=== PATIENT | male | born 1960 | race Caucasian/White ===

== ENCOUNTER 2017-01-23 01:36 | Emergency (ER) | payer OTHER ==
[~2017-01-23] VITALS: Ht 167.6 cm; Wt 97.0 kg
[~2017-01-23 01:36] MED LIST: BENA40TA41 PO; CYCL-319 PO; HYDR-3498 PO; HYDR12.58 PO; IBUP-1542 PO; OMEP20CA16 PO; TAMS-14 PO; TRAM50TA2 PO; ZOC10 PO; [UNRECOGNIZED DRUG - CODE] PO
[2017-01-23 02:01] VITALS: Ht 167.6 cm; Wt 97.0 kg
[2017-01-23 05:16] LABS: ADD SCAN DIFF NO
[2017-01-23 05:24] LABS: BASOPHILS % 0.4 % (0.0-2.0); EOSINOPHILS # 0.9 10^3/ul (0.0-0.5); EOSINOPHILS % 11.1 % (0.0-7.0); HEMATOCRIT 43.7 % (42.0-52.0); HEMOGLOBIN 15.2 g/dl (14.0-18.0); LYMPHOCYTES % 37.8 % (15.0-51.0); MEAN CORPUSCULAR HEMOGLOBIN 30.6 pg (29.0-33.0); MEAN CORPUSCULAR HGB CONC 34.8 g/dl (32.0-37.0); MEAN CORPUSCULAR VOLUME 88.1 fl (82.0-101.0); MEAN PLATELET VOLUME 9.4 fl (7.4-10.4); MONOCYTE # 0.6 10^3/ul (0.3-0.9); MONOCYTES % 8.1 % (0.0-11.0); NEUTROPHIL # 3.3 10^3/ul (1.6-7.5); PLATELET COUNT 284 10^3/UL (140-415); RED BLOOD COUNT 4.96 10^6/ul (4.70-6.10); RED CELL DISTRIBUTION WIDTH 12.3 % (11.5-14.5); WHITE BLOOD COUNT 7.9 10^3/ul (4.8-10.8)
[2017-01-23 05:31] LABS: INR 0.93; PROTIME 12.5 Sec (12.2-14.2)
[2017-01-23 05:32] LABS: PARTIAL THROMBOPLASTIN TIME 29.3 Sec (25.0-35.0)
--- NOTE | 2017-01-23 05:45 | RADRPT ---
PROCEDURE: CHEST - 1 VIEW CLINICAL INDICATION: 56-year-old male with chest pain. TECHNIQUE: A single frontal AP view of the chest was performed portably. The images were reviewed on a PACS workstation. COMPARISON: Chest x-ray May 16, 2015. FINDINGS: The cardiomediastinal silhouette has a normal appearance. There is no evidence for an infiltrate. There is no evidence for congestive heart failure. There is no evidence for pneumothorax. The osseou s structures are intact. IMPRESSION: No evidence for active cardiopulmonary disease. .Salvatore Mreritt MD, MD Date Time Electronically viewed and signed by .Salvatore Merritt MD, on 01/23/2017 05:45 .M/
[2017-01-23 05:46] LABS: ALBUMIN 4.6 g/dl (3.3-4.9); CHLORIDE 103 mmol/L (97-110)
[2017-01-23 05:47] LABS: POTASSIUM 4.1 mmol/L (3.5-5.1); SODIUM 145 mmol/L (135-144)
[2017-01-23 05:49] LABS: ALBUMIN/GLOBULIN RATIO 1.35; ALKALINE PHOSPHATASE 112 IU/L (42-121); ANION GAP 22 (8-16); ASPARTATE AMINO TRANSFERASE 46 IU/L (15-46); BILIRUBIN,INDIRECT 0.3 mg/dl (0-1.1); BILIRUBIN,TOTAL 0.3 mg/dl (0.2-1.3); BLOOD UREA NITROGEN 16 mg/dl (7-20); CARBON DIOXIDE 24 mmol/L (21-31); CREATININE 0.81 mg/dl (0.61-1.24); GLUCOSE 140 mg/dl (70-220)
[2017-01-23 05:50] LABS: ALANINE AMINOTRANSFERASE 28 IU/L (13-69); CALCIUM 9.7 mg/dl (8.4-10.2)
[2017-01-23 05:57] LABS: B-TYPE NATRIURETIC PEPTIDE 20 PG/ML (0-125)
[2017-01-23 06:01] LABS: TROPONIN-I < 0.012 ng/ml (0.00-0.12)
[2017-01-23] MEDS ORDERED: BELLADONNA/PHENOBARBITAL TAB PO STA (06:57)
[2017-01-23] MEDS ORDERED: FAMOTIDINE 20 MG TAB PO STA (06:57)
[2017-01-23] MEDS ORDERED: LIDOCAINE/MYLANTA 40 ML BTL PO STA (06:57)
[2017-01-23] MEDS ORDERED: FAMO40TA52 PO (07:01)
[2017-01-23] MEDS ORDERED: MAG355OR14 PO (07:01)
[2017-01-23] MEDS ORDERED: ACET325T33 PO (07:01)
[2017-01-23] MEDS ORDERED: OMEP40CA6 PO (07:01)
[2017-01-23 07:19] VITALS: BP 119/56; PULSE 64; RESP 18; TEMP 97.8
--- NOTE | 2017-01-23 07:58 | ERD ---
ER Documentation Chief Complaint Date/Time DATE: 01/23/17 TIME: 07:54 Chief Complaint CHEST PAIN SINCE YESTERDAY WITH SOB. SORE THROAT AND HEADACHE HPI 56-year-old man presents with burning epigastric pain which is sharp and radiating up to the throat. He states he has burning in his throat as well and increased belching over the last 2-3 days. He denies chest pain, denies fevers or chills, no calf or leg swelling, no vomiting or diarrhea, no headache or blurry vision. ROS All systems reviewed and are negative except as per history of present illness. Medications Home Meds Active Scripts Acetaminophen* (Tylenol*) 325 Mg Tablet, 2 TAB PO Q8 Y for PAIN AND OR ELEVATED TEMP, #30 TAB Prov:BANDAR HOWARD MD 01/23/17 Famotidine* (Famotidine*) 40 Mg Tablet, 40 MG PO HS, #30 TAB Prov:BANDAR HOWARD MD 01/23/17 Mag Hydrox/Al Hydrox/Simeth (Maalox Advanced Suspension) 355 Ml Oral.susp, 2 TSP PO TID for PAIN, #24 Prov:BANDAR HOWARD MD 01/23/17 Omeprazole* (Omeprazole*) 40 Mg Capsule.dr, 40 MG PO DAILY, #30 CAP Prov:BANDAR HOWARD MD 01/23/17 Cyclobenzaprine Hcl* (Cyclobenzaprine Hcl*) 10 Mg Tablet, 10 MG PO TID, #20 TAB Prov:PRIYANKA CUEVAS MD 04/17/16 Tramadol HCl (Tramadol HCl) 50 Mg Tablet, 50 MG PO Q4 Y for PAIN, #20 TAB Prov:PRIYANKA CUEVAS MD 04/17/16 Ibuprofen* (Motrin*) 600 Mg Tab, 600 MG PO Q6, #30 TAB Prov:PRIYANKA CUEVAS MD 04/17/16 Hydrocodone Bit-Acetaminophen* (Cologne*) 5-325 Mg Tab, 1 TAB PO Q4H Y for PAIN LEVEL 6-10 for 10 Days, TAB Prov:CANDACE CAPUTO MD 05/27/15 Primaquine* (Primaquine*) 15 Mg Tablet, 30 MG PO DAILY for 14 Days, TAB (26.3 MG PRIMAQUINE PHOSPHATE = 15 MG BASE) Prov:CANDACE CAPUTO MD 05/27/15 Reported Medications Omeprazole* (Omeprazole*) 20 Mg Capsule.dr, 20 MG PO DAILY, CAP 05/24/15 Benazepril Hcl* (Benazepril Hcl*) 40 Mg Tablet, 40 MG PO DAILY, TAB 05/24/15 Simvastatin (Simvastatin) 10 Mg Tablet, 10 MG PO HS, TAB 05/24/15 Hydrochlorothiazide* (Hydrochlorothiazide*) 12.5 Mg Tablet, 12.5 MG PO DAILY, TAB 05/24/15 Tamsulosin Hcl* (Flomax*) 0.4 Mg Cap.sr.24h, 0.4 MG PO QHS 05/04/12 Allergies Allergies: Coded Allergies: No Known Allergy (Unverified , 05/04/12) PMhx/Soc Hypertension, dyslipidemia History of Surgery: Yes (tongue sx, cholecystectomy) Anesthesia Reaction: No Hx Neurological Disorder: No Hx Respiratory Disorders: No Hx Cardiac Disorders: Yes (HTN, high cholesterol) Hx Psychiatric Problems: No Hx Miscellaneous Medical Probl: Yes (back pain) Hx Alcohol Use: No Hx Substance Use: No Hx Tobacco Use: Yes (quit 20 yrs ago) Smoking Status: Former smoker FmHx Family History: No diabetes Physical Exam Vitals Vital Signs Date Time Temp Pulse Resp B/P Pulse Ox O2 Delivery O2 Flow Rate FiO2 01/23/17 07:19 97.8 64 18 119/56 100 Room Air 01/23/17 05:34 Nasal Cannula 2 01/23/17 04:56 71 23 124/88 100 Room Air 01/23/17 02:01 97.6 72 18 141/91 98 Physical Exam GENERAL: Well-developed, well-nourished, well-hydrated, in no apparent distress , looks nontoxic in appearance HEENT: Moist mucous membranes, pink conjunctiva, no cervical spine tenderness or step-off deformities, no goiter, no jaundice or icterus, extraocular movements intact without pain. No submandibular induration, and no pharyngeal erythema NEURO: Alert and oriented 3, cranial nerves II through XII intact bilaterally, pupils equal round reactive to light, no focal deficits or facial asymmetry, sensation intact distally Strength 5/5 in upper and lower extremities bilaterally CARDIAC: Regular rate and rhythm, no murmurs rubs or gallops LUNGS: Clear bilaterally no wheezing crackles or stridor ABDOMEN: Soft nontender, no guarding, no rigidity, no rebound, no psoas sign no obturator sign. Normoactive bowel sounds SKIN: Warm and dry to touch, no abrasions, contusions, or hematomas, no lacerations, no ecchymosis, no target lesions, and without ulcers EXTREMITIES: No clubbing cyanosis or edema, calves are bilaterally symmetrical, no Homans sign, no popliteal cord sign. Distal pulses equal and bilateral PSYCH: Normal affect without agitation or irritability Result Diagram: 01/23/17 0505 01/23/17 0505 Results 24 hrs Laboratory Tests Test 01/23/17 05:05 Activated Partial Thromboplast Time 29.3Sec Alanine Aminotransferase (ALT/SGPT) 28IU/L Albumin 4.6g/dl Albumin/Globulin Ratio 1.35 Alkaline Phosphatase 112IU/L Anion Gap 22 Aspartate Amino Transf (AST/SGOT) 46IU/L B-Type Natriuretic Peptide 20PG/ML Basophils # 0.010^3/ul Basophils % 0.4% Blood Urea Nitrogen 16mg/dl Calcium Level 9.7mg/dl Carbon Dioxide Level 24mmol/L Chloride Level 103mmol/L Creatinine 0.81mg/dl Direct Bilirubin 0.00mg/dl Eosinophils # 0.910^3/ul Eosinophils % 11.1% Globulin 3.40g/dl Glucose Level 140mg/dl Hematocrit 43.7% Hemoglobin 15.2g/dl INR International Normalized Ratio 0.93 Indirect Bilirubin 0.3mg/dl Lymphocytes # 3.010^3/ul Lymphocytes % 37.8% Mean Corpuscular Hemoglobin 30.6pg Mean Corpuscular Hemoglobin Concent 34.8g/dl Mean Corpuscular Volume 88.1fl Mean Platelet Volume 9.4fl Monocytes # 0.610^3/ul Monocytes % 8.1% Neutrophils # 3.310^3/ul Neutrophils % 42.0% Nucleated Red Blood Cells # 0.010^3/ul Nucleated Red Blood Cells % 0.0/100WBC Platelet Count 34598^3/UL Potassium Level 4.1mmol/L Prothrombin Time 12.5Sec Prothrombin Time Ratio 1.0 Red Blood Count 4.9610^6/ul Red Cell Distribution Width 12.3% Sodium Level 145mmol/L Total Bilirubin 0.3mg/dl Total Protein 8.0g/dl Troponin I < 0.012ng/ml White Blood Count 7.910^3/ul Current Medications Medications (Trade) Dose Ordered Sig/Margarito Route PRN Reason Start Time Stop Time Status Last Admin Dose Admin Famotidine (Pepcid) 40 mg ONCE STAT PO 01/23/17 06:57 01/23/17 06:58 DC 01/23/17 07:14 Miscellaneous Medication (Gi Cocktail (2)) 40 ml ONCE STAT PO 01/23/17 06:57 01/23/17 06:58 DC 01/23/17 07:14 Belladonna/ Phenobarbital () 2 tab ONCE STAT PO 01/23/17 06:57 01/23/17 06:58 DC 01/23/17 07:16 Procedures/MDM I administered a GI cocktail 50 cc p.o., famotidine 40 mg p.o. with good response. EKG performed, read by me: 78 bpm, normal sinus rhythm, normal axis, no acute ST segment changes, narrow QRS complex, with good R-wave progression in precordial leads. CBC and electrolytes were normal, liver function tests were normal, troponin was negative Differential diagnoses considered, included but not limited to acute coronary syndrome, pulmonary embolism, aortic dissection, abdominal aortic aneurysm, sepsis, stroke, meningitis, encephalitis, pneumonia, appendicitis, cholecystitis , bowel obstruction, pyelonephritis, nephrolithiasis, cystitis, as well as metabolic, hematologic, and electrolyte abnormalities. As well as abscess, cellulitis, fractures, and dislocations. Patient feels much better at this time, and vital signs are normal, symptoms have improved. I did give strict instructions to return to the ED if symptoms continue or worsen, patient will otherwise follow-up with primary care physician. Patient understood instructions and agreed to plan. Departure Diagnosis: Primary Impression: Gastritis Gastritis type: unspecified gastritis Chronicity: acute Gastritis bleeding : without bleeding Qualified Code: K29.00 - Acute gastritis without hemorrhage, unspecified gastritis type Condition: Good BANDAR HOWARD MD Jan 23, 2017 07:58
== END 2017-01-23 07:22 | disposition home or self-care (01) ==
LOC: E/R 01:36
DX: K29.00 Acute gastritis without bleeding (principal); I10 Essential (primary) hypertension; R06.02 Shortness of breath; R40.2142 Coma scale, eyes open, spontaneous, at arrival to emergency department; R40.2252 Coma scale, best verbal response, oriented, at arrival to emergency department; R40.2362 Coma scale, best motor response, obeys commands, at arrival to emergency department; Z87.891 Personal history of nicotine dependence
CPT/HCPCS: 36415; 71010; 80053; 83880; 84484; 85025; 85610; 85730; 93005; Z7502; Z7610

== ENCOUNTER 2018-07-05 13:33 | Inpatient (IN) | END 2018-07-15 15:40 | disposition home or self-care (01) | DRG 871 ==

== ENCOUNTER 2018-12-22 22:44 | Inpatient (IN) | payer BC ==
[~2018-12-22] VITALS: Ht 167.6 cm; Wt 93.7 kg
[~2018-12-22 22:44] MED LIST changes: +ASPI-903 PO; +BENA20TA4 PO; -BENA40TA41 PO; +CARV6.25 PO; -CYCL-319 PO; +FAMO40TA5 PO; -HYDR-3498 PO; -HYDR12.58 PO; -IBUP-1542 PO; +MTF1000T PO; -OMEP20CA16 PO; +SIMV5TAB14 PO; -TAMS-14 PO; -TRAM50TA2 PO; -ZOC10 PO; -[UNRECOGNIZED DRUG - CODE] PO
--- NOTE | 2018-12-22 23:23 | ERD ---
ER Documentation Chief Complaint Chief Complaint fever w/ dysuria, flank pain, LOVETT. no n/v/d. last ibuprofen 2 hrs ago HPI 58-year-old man with a history of UTIs complains of dysuria and bilateral flank pain, headache, fever times 2 days. Patient denies urethral discharge, no chest pain or shortness of breath, no trauma, no hematuria, no complaints of vomiting or diarrhea. ROS All systems reviewed and are negative except as per history of present illness. Medications Home Meds Reported Medications Benazepril Hcl* (Benazepril Hcl*) 20 Mg Tablet, 20 MG PO DAILY, #30 TAB 07/05/18 Metformin* (Glucophage*) 1,000 Mg Tablet, 1000 MG PO BID, #60 TAB 07/05/18 Aspirin* (Aspirin* Chew) 81 Mg Tab.chew, 81 MG PO DAILY, TAB.CHEW 07/05/18 Simvastatin* (Simvastatin*) 5 Mg Tablet, 5 MG PO QHS, #30 TAB 07/05/18 Famotidine* (Famotidine*) 40 Mg Tablet, 40 MG PO DAILY, #30 TAB 07/05/18 Carvedilol* (Coreg*) 6.25 Mg Tablet, 6.25 MG PO BID, #60 TAB 07/05/18 Allergies Allergies: Coded Allergies: No Known Allergy (Unverified , 07/05/18) PMhx/Soc Hypertension, dyslipidemia, gastritis, diabetes mellitus, history of UTI History of Surgery: Yes Anesthesia Reaction: No Hx Neurological Disorder: No Hx Respiratory Disorders: No Hx Cardiac Disorders: Yes (mi) Hx Psychiatric Problems: No Hx Miscellaneous Medical Probl: No Hx Alcohol Use: No Hx Substance Use: No Hx Tobacco Use: No FmHx Family History: No diabetes Physical Exam Vitals Vital Signs Date Temp Pulse Resp B/P (MAP) Pulse Ox O2 O2 Flow FiO2 Time Delivery Rate 12/22/18 102.7 110 20 119/84 97 22:48 (96) Physical Exam GENERAL: Well-developed, well-nourished, well-hydrated, febrile HEENT: Moist mucous membranes, pink conjunctiva, no cervical spine tenderness or step-off deformities, no goiter, no jaundice or icterus, extraocular movements i ntact without pain. No submandibular induration, and no pharyngeal erythema NEURO: Alert and oriented 3, cranial nerves II through XII intact bilaterally, pupils equal round reactive to light, no focal deficits or facial asymmetry, sensation intact distally Strength 5/5 in upper and lower extremities bilaterally CARDIAC: Tachycardic and regular, no murmurs rubs or gallops LUNGS: Clear bilaterally no wheezing crackles or stridor ABDOMEN: Soft nontender, no guarding, no rigidity, no rebound, no psoas sign no obturator sign. Normoactive bowel sounds SKIN: Warm and dry to touch, no abrasions, contusions, or hematomas, no lacerations, no ecchymosis, no target lesions, and without ulcers EXTREMITIES: No clubbing cyanosis or edema, calves are bilaterally symmetrical, no Homans sign, no popliteal cord sign. Distal pulses equal and bilateral PSYCH: Normal affect without agitation or irritability Result Diagram: 12/23/18 0434 12/22/18 2333 Results 24 hrs Laboratory Tests Test 12/22/18 23:29 12/22/18 23:33 POC Venous Lactate 1.7 mmol/L White Blood Count 14.8 10^3/ul Red Blood Count 4.57 10^6/ul Hemoglobin 14.0 g/dl Hematocrit 40.7 % Mean Corpuscular Volume 89.1 fl Mean Corpuscular Hemoglobin 30.6 pg Mean Corpuscular Hemoglobin Concent 34.4 g/dl Red Cell Distribution Width 11.9 % Platelet Count 209 10^3/UL Mean Platelet Volume 9.6 fl Immature Granulocytes % 0.300 % Neutrophils % 82.1 % Lymphocytes % 8.2 % Monocytes % 5.9 % Eosinophils % 3.2 % Basophils % 0.3 % Nucleated Red Blood Cells % 0.0 /100WBC Immature Granulocytes # 0.050 10^3/ul Neutrophils # 12.1 10^3/ul Lymphocytes # 1.2 10^3/ul Monocytes # 0.9 10^3/ul Eosinophils # 0.5 10^3/ul Basophils # 0.0 10^3/ul Nucleated Red Blood Cells # 0.0 10^3/ul Prothrombin Time 14.3 Sec Prothrombin Time Ratio 1.1 INR International Normalized Ratio 1.10 Activated Partial Thromboplast Time 34.2 Sec Urine Color STACY Urine Clarity TURBID Urine pH 6.0 Urine Specific [place] 1.031 Urine Ketones TRACE mg/dL Urine Nitrite NEGATIVE mg/dL Urine Bilirubin NEGATIVE mg/dL Urine Urobilinogen 2+ mg/dL Urine Leukocyte Esterase 2+ Ayanna/ul Urine Microscopic RBC > 182 /HPF Urine Microscopic WBC > 182 /HPF Urine Bacteria MODERATE /HPF Urine Mucus MANY /HPF Urine Hemoglobin 2+ mg/dL Urine Glucose 2+ mg/dL Urine Total Protein 2+ mg/dl Sodium Level 138 mmol/L Potassium Level 3.8 mmol/L Chloride Level 104 mmol/L Carbon Dioxide Level 24 mmol/L Anion Gap 10 Blood Urea Nitrogen 12 mg/dl Creatinine 1.10 mg/dl Est Glomerular Filtrat Rate mL/min > 60 mL/min Glucose Level 253 mg/dl Calcium Level 9.4 mg/dl Total Bilirubin 1.5 mg/dl Direct Bilirubin 0.00 mg/dl Indirect Bilirubin 1.5 mg/dl Aspartate Amino Transf (AST/SGOT) 48 IU/L Alanine Aminotransferase (ALT/SGPT) 42 IU/L Alkaline Phosphatase 107 IU/L Troponin I < 0.012 ng/ml C-Reactive Protein 19.1 mg/dl Total Protein 8.0 g/dl Albumin 4.5 g/dl Globulin 3.50 g/dl Albumin/Globulin Ratio 1.28 Lipase 73 U/L Current Medications Medications Dose Sig/Margarito Start Time Status Last (Trade) Ordered Route PRN Stop Time Admin Dose Reason Admin Sodium 3,000 ml BOLUS OVER 2 12/22/18 DC 12/22/18 Chloride HOURS STAT 23:25 12/22/18 23:41 (NS) IV* 23:27 Ceftriaxone 50 ml @ ONCE ONCE 12/22/18 DC 12/22/18 Sodium 100 mls/hr IVPB 23:30 12/22/18 23:40 23:59 Morphine 4 mg ONCE STAT 12/22/18 DC 12/22/18 Sulfate IV 23:27 12/22/18 23:40 (morphine) 23:28 Procedures/MDM IV line was established patient was placed on cardiac specialist rhythm strip revealed a sinus tachycardia at 110 bpm with upright P and T waves. Patient was febrile, blood and urine cultures have been ordered results are pending I will follow-up. I administered 3 L normal saline IV, ibuprofen 600 mg p.o., ceftriaxone 1 g IV. Urinalysis was positive for infection. CBC reveals a leukocytosis of 15, electrolytes are unremarkable, liver function tests normal, troponin negative, lactic acid level low at 1.7. EKG performed, read by me revealed a normal sinus rhythm at 93 bpm, normal axis, narrow QRS complex, no concerning ST elevations or depressions noted Chest X-ray 1V Interpreted by me: Soft Tissue: No acute abnormalities Bones: No acute abnormalities Mediastinum/Cardiac Silhouette/Lungs: No acute abnormalities CT scan of the abdomen and pelvis was performed,IMPRESSION: 1. Hepatic steatosis. 2. Status post cholecystectomy. 3. Small umbilical hernia containing fat. 4. Mild retained stool within the proximal colon without obstruction. 5. Shotty mesenteric lymph nodes. 6. Ufhe-[id number]-yvpatbjtvc enlarged heterogeneous prostate. 7. L5-S1 spondylolisthesis (20%) Patient's infectious symptoms have not stabilized and the patient is at risk of rapid decompensation. The patient will be admitted for careful hydration, antibiotic therapy, and infectious source control. SEVERE SEPSIS CRITERIA: Infectious source: Urinary tract infection End organ damage indicated by: None SEPSIS MANAGEMENT Time of recognition of sepsis: Upon arrival. Time of recognition of severe sepsis: No severe sepsis at this time. Time of recognition of septic shock: No septic shock at this time. 3 HOUR BUNDLE Blood cultures x 2 before broad-spectrum antibiotics: Yes 30 ml/kg NS bolus completed Initial lactate 1.7 Repeat lactate pending SEPTIC SHOCK ASSESSMENT: No lactic acid > 4.0 No persistent hypotension (SBP < 90 or 40 mmHg drop, MAP < 65) despite 30 mL/kg IV fluid bolus VOLUME REASSESSMENT FOR SEPTIC SHOCK: Reevaluation Time: 2359 Temp 99 F, blood pressure 140/90, pulse 100 bpm, respiratory rate 18 breaths/ min, oxygen saturation 100% Heart regular rate & rhythm Lungs no crackles Skin warm & dry Cap Refill less than 2 seconds Peripheral pulses radially present PERSISTENT HYPOTENSION TREATMENT: Comfort care no Central line not Required Vasopressor started not required I considered further perfusion assessment with CVP measurement, SCVO2, bedside ultrasound volume assessment, passive leg raise, trial of further fluid bolus. And proceeded with 30 ml/kg fluid bolus of NSS, broad spectrum antibiotics, and admission. CRITICAL CARE: Critical care time 35 minutes, this was time separate from other billable procedures. Emergent fluid management while maintaining close respiratory support. Provision of immediate and broad-spectrum antibiotic therapy. Simultaneous assessment for possible sources in order to direct targeted therapy. Consideration for invasive and chemical support to prevent cardiopulmonary collapse. Critical care time is independent of procedures performed. Accepting Care Team: Current data and ongoing care discussed. Time: Time of admission Primary Provider: Hospitalist Consulting: Infectious disease Outstanding Data: none I do not suspect sepsis although patient has a UTI and has a history of UTIs with other medical conditions so he will be admitted to [facility] for continued IV antibiotics and hydration Departure Diagnosis: Primary Impression: Dehydration Additional Impression: Acute UTI Condition: BANDAR Cerda MD Dec 22, 2018 23:23
[2018-12-22] MEDS ORDERED: SODIUM CHLORIDE 0.9% 1L BAG IV* STA (23:25)
[2018-12-22] MEDS ORDERED: morphine 4 MG/ML VIAL IV STA (23:27)
[2018-12-22] MEDS ORDERED: CEFTRIAXONE 1 GM/50 ML (PMX) 50 ML IVPB ONE (23:30)
[2018-12-23] VITALS (7 sets, daily range): BP systolic 100–184; BP diastolic 56–92; PULSE 64–135; RESP 16–22; Ht 167.6 cm; Wt 93.7 kg
[2018-12-23] MEDS: ACCU-CHEK XX SCH (02:00)
[2018-12-23] MEDS: SOD CHLORIDE 0.9% 1,000 ML IV SCH ×3 (02:13→22:14)
[2018-12-23] MEDS ORDERED: DEXTROSE 50% 50 ML SYRINGE IV PRN ×2 (02:30)
[2018-12-23] MEDS ORDERED: GLUCAGON 1 MG INJ IM PRN (02:30)
[2018-12-23] MEDS ORDERED: GLUCOSE GEL 15 GRAM TUBE PO PRN ×2 (02:30)
[2018-12-23] MEDS ORDERED: GLUCOSE GEL 15 GRAM TUBE BUCCAL PRN (02:30)
[2018-12-23] MEDS: morphine 2 MG INJ IV PRN ×3 (04:20→18:48)
[2018-12-23] MEDS: ACETAMINOPHEN 325 MG TAB PO PRN ×2 (04:26→15:41)
[2018-12-23] MEDS: ONDANSETRON 4 MG INJ IV PRN (04:47)
--- NOTE | 2018-12-23 04:51 | EN ---
Date/Time of Note Date/Time of Note DATE: 12/23/18 TIME: 04:51 Event Note Medicine Medicine Event Note CUTTING TABLE OPERATOR Note CUTTING TABLE OPERATOR was called secondary to patient reporting chest pain and shivering, CUTTING TABLE OPERATOR was called at approximately 4:15 am Patient was seen and examined at the bedside. Patient was noted to be in rigors/shivering. He reported pain across his chest. Patient's blood pressure was noted to be 180/90 with a heart rate approximately 130-140s respirations were 18 he was satting at 95% on room air. patient's temp is 99.2. He is currently being treated for sepsis secondary to UTI. He denies any shortness of breath. Vitals: As per above General: Patient rigoring shivering, reports some chest discomfort CVS: Sinus tachycardia Lungs: Clear to auscultate bilaterally Neuro: Alert and oriented x3, cranial nerves II through XII intact Stat EKG: Sinus tachycardia, no ST or T wave normality concerning for acute acute ischemia Assessment and plan #1 sepsis: Secondary to underlying UTI. Continue antibiotics. Continue IV fluids. Tylenol 650 p.o. given which did result in improvement of the rigors. will check stat lactic acid #2 chest pain: Suspect more likely secondary to #1. EKG shows sinus tachycardia, initial troponin that was done in the emergency department is negative. Will order stat cardiac enzymes x2. Disposition: I feel per patient is appropriate to remain in MedSurg floor as his heart rate have improved after receiving the Tylenol. Continue current management. Await further laboratory results. Greater than 35 minutes of critical care time was spent on the care and management of this patient. SHANICE HUA Dec 23, 2018 04:51
[2018-12-23] MEDS: ENOXAPARIN 30 MG/0.3 ML SYG SC SCH (08:05)
[2018-12-23] MEDS: INSULIN ASPART [NOVOLOG] 3 ML PEN SC SCH ×4 (08:09→20:54)
--- NOTE | 2018-12-23 13:10 | HP ---
Date/Time of Note Date/Time of Note DATE: 12/23/18 TIME: 13:08 Assessment/Plan VTE Prophylaxis Risk score (from Ns)>0 risk: 2 SCD applied (from Ns): Yes Pharmacological prophylaxis: LMWH Lines/Catheters IV Catheter Type (from [facility]): Peripheral IV Urinary Cath still in place: No Assessment/Plan Hospital Course 1) urinary tract infection - IV antibiotics - monitor clinically 2) diabetes - monitor blood sugar 3) hypertension - continue home meds Result Diagram: 12/23/1843312/23/184 Results 24hrs Laboratory Tests Test 12/22/18 23:29 12/22/18 23:33 12/23/18 01:49 12/23/18 04:21 POC Venous Lactate 1.7 White Blood Count 14.8 #H Red Blood Count 4.57 L Hemoglobin 14.0 Hematocrit 40.7 L Mean Corpuscular 89.1 Volume Mean Corpuscular 30.6 Hemoglobin Mean Corpuscular 34.4 Hemoglobin Concent Red Cell 11.9 Distribution Width Platelet Count 209 # Mean Platelet Volume 9.6 Immature 0.300 Granulocytes % Neutrophils % 82.1 H Lymphocytes % 8.2 L Monocytes % 5.9 Eosinophils % 3.2 Basophils % 0.3 Nucleated Red Blood 0.0 Cells % Immature 0.050 H Granulocytes # Neutrophils # 12.1 H Lymphocytes # 1.2 Monocytes # 0.9 Eosinophils # 0.5 Basophils # 0.0 Nucleated Red Blood 0.0 Cells # Prothrombin Time 14.3 Prothrombin Time 1.1 Ratio INR International 1.10 Normalized Ratio Activated 34.2 Partial Thromboplast Time Urine Color STACY Urine Clarity TURBID A Urine pH 6.0 Urine Specific 1.031 H [place] Urine Ketones TRACE A Urine Nitrite NEGATIVE Urine Bilirubin NEGATIVE Urine Urobilinogen 2+ H Urine Leukocyte 2+ H Esterase Urine Microscopic > 182 H RBC Urine Microscopic > 182 H WBC Urine Bacteria MODERATE Urine Mucus MANY A Urine Hemoglobin 2+ H Urine Glucose 2+ H Urine Total Protein 2+ H Sodium Level 138 Potassium Level 3.8 Chloride Level 104 Carbon Dioxide Level 24 Anion Gap 10 Blood Urea Nitrogen 12 Creatinine 1.10 Est Glomerular > 60 Filtrat Rate mL/min Glucose Level 253 H Calcium Level 9.4 Total Bilirubin 1.5 H Direct Bilirubin 0.00 Indirect Bilirubin 1.5 H Aspartate Amino 48 H Transf (AST/SGOT) Alanine 42 Aminotransferase (AL T/SGPT) Alkaline Phosphatase 107 Troponin I < 0.012 C-Reactive Protein 19.1 H Total Protein 8.0 Albumin 4.5 Globulin 3.50 H Albumin/Globulin 1.28 Ratio Lipase 73 Lactic Acid Level 1.3 Bedside Glucose 230 H Test 12/23/18 04:25 12/23/18 04:34 12/23/18 04:36 12/23/18 08:07 Lactic Acid Level 4.7 *H White Blood Count 13.5 H Red Blood Count 4.30 L Hemoglobin 13.3 L Hematocrit 40.1 L Mean Corpuscular 93.3 Volume Mean Corpuscular 30.9 Hemoglobin Mean Corpuscular 33.2 Hemoglobin Concent Red Cell 12.1 Distribution Width Platelet Count 197 Mean Platelet Volume 9.6 Immature 0.600 H Granulocytes % Neutrophils % 84.9 H Segmented 73 Neutrophils % (Manual) Band Neutrophils % 8 H (Manual) Lymphocytes % 12.3 L Lymphocytes % 14 L (Manual) Monocytes % 1.1 Monocytes % (Manual) 5 Eosinophils % 0.7 Basophils % 0.4 Nucleated Red Blood 0.0 Cells % Immature 0.080 H Granulocytes # Neutrophils # 11.4 H Neutrophils # 10.0 H (Manual) Band Neutrophils # 1.0 H Lymphocytes (Manual) 1.8 Lymphocytes # 1.7 Monocytes # 0.2 L Monocytes # (Manual) 0.6 Eosinophils # 0.1 Basophils # 0.1 Nucleated Red Blood 0.0 Cells # Platelet Estimate NORMAL Anisocytosis 1+ Microcytosis 1+ Sodium Level 140 Potassium Level 4.5 Chloride Level 108 Carbon Dioxide Level 23 Anion Gap 9 Blood Urea Nitrogen 10 Creatinine 1.12 Est Glomerular > 60 Filtrat Rate mL/min Glucose Level 220 Calcium Level 8.8 Creatine Kinase 165 Creatine Kinase 0.4 Index Creatinine Kinase MB 0.64 (Mass) Troponin I 0.012 Bedside Glucose 184 Test 12/23/18 08:15 12/23/18 12:18 Lactic Acid Level 1.8 Creatine Kinase 144 Creatine Kinase 0.4 Index Creatinine Kinase MB 0.57 (Mass) Troponin I < 0.012 Bedside Glucose 226 H HPI/ROS Admit Date/Time Admit Date/Time Dec 23, 2018 at 00:19 Hx of Present Illness Patient with hypertension, hyperlipidemia, and diabetes mellitus on oral medications comes in with headache and fever. Patient is found to have urinary tract infection and so is admitted for IV antibiotics. PMH/Family/Social Past Medical History Medical History: diabetes, high cholesterol, hypertension Medications Current Medications Diagnostic Test (Pha) (Accu-Chek) 1 ea 02 XX ; Start 12/23/18 at 02:00 Insulin Aspart (Novolog Insulin Pen) NOVOLOG *MODERATE* ALGORITHM WITH MEALS BEDTIME SC Last administered on 12/23/18at 12:24; Admin Dose 6 UNIT; Start 12/23/18 at 08:00 Sodium Chloride 1,000 ml @ 100 mls/hr Q10H IV Last administered on 12/23/18at 12:16; Admin Dose 100 MLS/HR; Start 12/23/18 at 02:00 Ceftriaxone Sodium 50 ml @ 100 mls/hr Q24H IVPB ; Start 12/23/18 at 23:30 Morphine Sulfate (morphine) 2 mg Q6H PRN IV SEVERE PAIN LEVEL 7-10 Last administered on 12/23/18at 12:17; Admin Dose 2 MG; Start 12/23/18 at 02:00 Acetaminophen (Tylenol Tab) 650 mg Q6H PRN PO MILD PAIN(1-3)OR ELEVATED TEMP Last administered on 12/23/18at 04:26; Admin Dose 650 MG; Start 12/23/18 at 02:00 Enoxaparin Sodium (Lovenox) 30 mg DAILY SC Last administered on 12/23/18at 08:05; Admin Dose 30 MG; Start 12/23/18 at 09:00 Ondansetron HCl (Zofran Inj) 4 mg Q6H PRN IV NAUSEA AND/OR VOMITING Last administered on 12/23/18at 04:47; Admin Dose 4 MG; Start 12/23/18 at 02:00 Miscellaneous Information 1 ea NOTE XX ; Start 12/23/18 at 02:30 Glucose (Glutose) 15 gm Q15M PRN PO DECREASED GLUCOSE; Start 12/23/18 at 02:30 Glucose (Glutose) 22.5 gm Q15M PRN PO DECREASED GLUCOSE; Start 12/23/18 at 02:30 Dextrose (D50w Syringe) 25 ml Q15M PRN IV DECREASED GLUCOSE; Start 12/23/18 at 02:30 Dextrose (D50w Syringe) 50 ml Q15M PRN IV DECREASED GLUCOSE; Start 12/23/18 at 02:30 Glucagon (Glucagen) 1 mg Q15M PRN IM DECREASED GLUCOSE; Start 12/23/18 at 02:30 Glucose (Glutose) 15 gm Q15M PRN BUCCAL DECREASED GLUCOSE; Start 12/23/18 at 02:30 Coded Allergies: No Known Allergy (Unverified , 07/05/18) Past Surgical History Past Surgical Hx: other Family History Significant Family History: no pertinent family hx Social History Smoking Status: Former smoker Exam/Review of Systems Vital Signs Vitals Vital Signs Date Temp Pulse Resp B/P (MAP) Pulse Ox O2 O2 Flow FiO2 Time Delivery Rate 12/23/18 97.7 70 17 104/64 98 08:07 (77) 12/23/18 Room Air 05:30 Intake and Output 12/22/18 12/22/18 12/23/18 1515:00 23:00 07:00 IntakeIntake Total 2425 ml OutputOutput Total 1100 ml BalanceBalance 1325 ml Exam Constitutional: well developed Head: normocephalic, atraumatic Neck: supple Respiratory: diminished breath sounds Cardiovascular: regular rate and rhythm Gastrointestinal: soft, non-tender Extremities: normal pulses GALINDO VELAZQUEZ Dec 23, 2018 13:10
[2018-12-23] MEDS ORDERED: metFORMIN 500 MG TAB PO SCH (21:00)
[2018-12-23] MEDS: CEFTRIAXONE 1 GM/50 ML (PMX) 50 ML IVPB SCH (23:03)
[2018-12-24] MEDS: morphine 2 MG INJ IV PRN ×3 (01:01→17:13)
[2018-12-24] MEDS: ACCU-CHEK XX SCH (02:00)
[2018-12-24] MEDS: ACETAMINOPHEN 325 MG TAB PO PRN ×3 (02:00→20:41)
[2018-12-24 02:09] VITALS: BP 112/58; PULSE 80; RESP 18
[2018-12-24 07:30] VITALS: BP 127/72; PULSE 88; RESP 17
[2018-12-24] MEDS: metFORMIN 500 MG TAB PO SCH ×2 (07:50→17:28)
[2018-12-24] MEDS: SOD CHLORIDE 0.9% 1,000 ML IV SCH ×3 (07:50→20:48)
[2018-12-24] MEDS: INSULIN ASPART [NOVOLOG] 3 ML PEN SC SCH ×4 (07:52→20:45)
[2018-12-24] MEDS: FAMOTIDINE 20 MG TAB PO SCH (08:36)
[2018-12-24] MEDS: ASPIRIN 81 MG TAB PO SCH (08:36)
[2018-12-24] MEDS: BENAZEPRIL 20 MG TAB PO SCH (08:37)
[2018-12-24] MEDS: ENOXAPARIN 30 MG/0.3 ML SYG SC SCH (08:39)
[2018-12-24 14:34] VITALS: BP 110/57; PULSE 74; RESP 17
--- NOTE | 2018-12-24 15:51 | PN ---
Date/Time of Note Date/Time of Note DATE: 12/24/18 TIME: 15:48 Assessment/Plan VTE Prophylaxis Risk score (from Nsg)>0 risk: 2 SCD applied (from Nsg): Yes Pharmacological prophylaxis: LMWH Lines/Catheters IV Catheter Type (from Nrsg): Peripheral IV Urinary Cath still in place: No Assessment/Plan Hospital Course Pt complains of headache not relieved by morphine, denies fever, chills, denies chest pain. Assessment/Plan -Sepsis with gram-negative rods bacteremia -Acute UTI -Coronary artery disease status post SC a year ago -Hypertension -Hyperlipidemia -Diabetes mellitus type 2 -Enlarged prostate per CT of the abdomen Further recommendations based on clinical course. Plan of care discussed with Dr. Daniels. Result Diagram: 12/23/1843312/23/18433 Results 24hrs Laboratory Tests Test 12/23/18 17:26 12/23/18 20:47 12/24/18 01:57 12/24/18 07:44 Bedside Glucose 205 199 175 194 Test 12/24/18 12:59 Bedside Glucose 160 Exam/Review of Systems Exam Vitals Vital Signs Date Temp Pulse Resp B/P (MAP) Pulse Ox O2 O2 Flow FiO2 Time Delivery Rate 12/24/18 98.6 74 17 110/57 99 Room Air 14:34 (74) Intake and Output 12/23/18 12/23/18 12/24/18 1414:59 22:59 06:59 IntakeIntake Total 1685 ml 1480 ml 1475 ml OutputOutput Total 1450 ml 1150 ml 650 ml BalanceBalance 235 ml 330 ml 825 ml Constitutional: alert, oriented Head: normocephalic Neck: supple Respiratory: clear to auscultation Cardiovascular: nl pulses Gastrointestinal: soft, non-tender Extremities: normal pulses Neurological: nl mental status Results Results 24hrs Laboratory Tests Test 12/23/18 17:26 12/23/18 20:47 12/24/18 01:57 12/24/18 07:44 Bedside Glucose 205 199 175 194 Test 12/24/18 12:59 Bedside Glucose 160 Medications Medication Current Medications Diagnostic Test (Pha) (Accu-Chek) 1 ea 02 XX Last administered on 12/24/18at 02:00; Admin Dose 1 EA; Start 12/23/18 at 02:00 Insulin Aspart (Novolog Insulin Pen) NOVOLOG *MODERATE* ALGORITHM WITH MEALS BEDTIME SC Last administered on 12/24/18 13:02; Admin Dose 2 UNIT; Start 12/23/18 at 08:00 Sodium Chloride 1,000 ml @ 100 mls/hr Q10H IV Last administered on 12/24/18at 10:55; Admin Dose 100 MLS/HR; Start 12/23/18 at 02:00 Ceftriaxone Sodium 50 ml @ 100 mls/hr Q24H IVPB Last administered on 12/23/18at 23:03; Admin Dose 100 MLS/HR; Start 12/23/18 at 23:30 Morphine Sulfate (morphine) 2 mg Q6H PRN IV SEVERE PAIN LEVEL 7-10 Last administered on 12/24/18 10:55; Admin Dose 2 MG; Start 12/23/18 at 02:00 Acetaminophen (Tylenol Tab) 650 mg Q6H PRN PO MILD PAIN(1-3)OR ELEVATED TEMP Last administered on 12/24/18at 08:01; Admin Dose 650 MG; Start 12/23/18 at 02:00 Enoxaparin Sodium (Lovenox) 30 mg DAILY SC Last administered on 12/24/18at 08:39; Admin Dose 30 MG; Start 12/23/18 at 09:00 Ondansetron HCl (Zofran Inj) 4 mg Q6H PRN IV NAUSEA AND/OR VOMITING Last administered on 12/23/18at 04:47; Admin Dose 4 MG; Start 12/23/18 at 02:00 Miscellaneous Information 1 ea NOTE XX ; Start 12/23/18 at 02:30 Glucose (Glutose) 15 gm Q15M PRN PO DECREASED GLUCOSE; Start 12/23/18 at 02:30 Glucose (Glutose) 22.5 gm Q15M PRN PO DECREASED GLUCOSE; Start 12/23/18 at 02:30 Dextrose (D50w Syringe) 25 ml Q15M PRN IV DECREASED GLUCOSE; Start 12/23/18 at 02:30 Dextrose (D50w Syringe) 50 ml Q15M PRN IV DECREASED GLUCOSE; Start 12/23/18 at 02:30 Glucagon (Glucagen) 1 mg Q15M PRN IM DECREASED GLUCOSE; Start 12/23/18 at 02:30 Glucose (Glutose) 15 gm Q15M PRN BUCCAL DECREASED GLUCOSE; Start 12/23/18 at 02:30 Aspirin (Aspirin) 81 mg DAILY PO Last administered on 12/24/18 08:36; Admin Dose 81 MG; Start 12/24/18 at 09:00 Benazepril HCl (Lotensin) 20 mg DAILY PO Last administered on 12/24/18 08:37; Admin Dose 20 MG; Start 12/24/18 at 09:00 Carvedilol (Coreg) 6.25 mg BID PO Last administered on 12/24/18 08:37; Admin Dose 6.25 MG; Start 12/23/18 at 21:00 Famotidine (Pepcid) 40 mg DAILY PO Last administered on 12/24/18 08:36; Admin Dose 40 MG; Start 12/24/18 at 09:00 Metformin HCl (Glucophage) 1,000 mg BID WITH MEALS PO Last administered on 12/24/18 07:50; Admin Dose 1,000 MG; Start 12/24/18 at 08:00 SCOOBY DILLON Dec 24, 2018 15:51
[2018-12-24 19:19] VITALS: BP 119/74; PULSE 80; RESP 16
[2018-12-25] MEDS: CEFTRIAXONE 1 GM/50 ML (PMX) 50 ML IVPB SCH ×2 (00:13→23:37)
[2018-12-25] MEDS: HYDROmorphONE 1 MG/ML SYG IV PRN ×3 (00:16→17:22)
[2018-12-25 01:39] VITALS: BP 106/64; PULSE 75; RESP 16
[2018-12-25] MEDS: ACCU-CHEK XX SCH (02:00)
[2018-12-25] MEDS: ACETAMINOPHEN 325 MG TAB PO PRN (06:41)
[2018-12-25 07:29] VITALS: BP 136/81; PULSE 72; RESP 16
[2018-12-25] MEDS: ASPIRIN 81 MG TAB PO SCH (08:53)
[2018-12-25] MEDS: BENAZEPRIL 20 MG TAB PO SCH (08:53)
[2018-12-25] MEDS: metFORMIN 500 MG TAB PO SCH ×2 (08:54→17:12)
[2018-12-25] MEDS: FAMOTIDINE 20 MG TAB PO SCH (08:54)
[2018-12-25] MEDS: ENOXAPARIN 30 MG/0.3 ML SYG SC SCH (08:56)
[2018-12-25] MEDS: INSULIN ASPART [NOVOLOG] 3 ML PEN SC SCH ×4 (08:56→20:41)
[2018-12-25] MEDS: SOD CHLORIDE 0.9% 1,000 ML IV SCH ×2 (09:00→17:12)
--- NOTE | 2018-12-25 12:47 | CONS ---
DATE OF ADMISSION: 12/23/2018 DATE OF CONSULTATION: 12/25/2018 TYPE OF CONSULTATION: Infectious disease. REASON FOR CONSULTATION: Antibiotic management. HISTORY OF PRESENT ILLNESS: Luis Torres is a 58-year-old male who came to the Emergency Room on the 12/22/2018 with fever, dysuria, flank pain and headache. The patient has a history of UT Is, complaints of dysuria and bilateral flank pain with headache and fever for 2 days. He denies ure thral discharge. There is no shortness of breath, chest pain. No complaints of vomiting or diarrhea . PAST MEDICAL PROBLEMS: Include: 1. History of UTI. 2. Hypertension. 3. Dyslipidemia. 4. Gastritis. 5. Diabetes mellitus. On admission, his temperature was 102.7. White count was 13.5, H and H of 13.3 and 40.1, platelet co unt 197,000. BUN and creatinine 12/1.10. The patient had 82% neutrophils. Urinalysis showed 2+ macho kocyte esterase and greater than 182 white cells per high powered field. Patient was started on ceft riaxone for urinary tract infection. CT scan of the abdomen and pelvis showed hepatic steatosis, sta tus post cholecystectomy, small umbilical hernia containing fat, mild retained stool within the proxi mal colon without obstruction, shotty mesenteric lymph nodes, mild to moderately enlarged heterogeneo us prostate, L5-S1 spondylolisthesis 20%. The patient was admitted with severe sepsis. The patient has urine with E. coli and blood cultures with Escherichia coli, so he has urinary tract infection wi th bacteremia and sepsis, currently on ceftriaxone alone. PAST MEDICAL HISTORY: Operations as outlined. FAMILY HISTORY: Noncontributory. SOCIAL HISTORY: Does not smoke, drink or abuse drugs. ALLERGIES: None to penicillin, sulfa or foods. MEDICATIONS: Per chart. REVIEW OF SYSTEMS: As per HPI. It should be noted on 12/23/2018 he had shaking chills and I believe blood cultures were done. PHYSICAL EXAMINATION: GENERAL: He is a well-developed, well-nourished male, alert, responsive, in no acute distress. VITAL SIGNS: Stable. He is afebrile. SKIN: Without generalized rash. HEENT: Within normal limits. NECK: Supple. LYMPH NODES: None palpable. CHEST: Decreased breath sounds at the bases. HEART: Tachycardic without murmur or gallop. ABDOMEN: Soft, nontender, without organosplenomegaly or masses. EXTREMITIES: Without cyanosis, clubbing, or edema. RECTAL AND GENITAL: Deferred. NEUROLOGIC: No focal neurological abnormality. IMPRESSION AND PLAN: The patient presents now with urinary tract infection. We will await the cultu re reports. White count is down. He is afebrile. I will dictate my findings to Dr. Daniels and to nurse practitioner Prtaik. Dictated By: CAMILO MEDELLIN MD, JD/NTS Conf#: [id number] DID#: [id number] CC: GALINDO VELAZQUEZ MD;*EndCC*
[2018-12-25 13:53] VITALS: BP 125/79; PULSE 72; RESP 17
[2018-12-25] MEDS: ONDANSETRON 4 MG INJ IV PRN (17:18)
--- NOTE | 2018-12-25 17:18 | PN ---
Date/Time of Note Date/Time of Note DATE: 12/25/18 TIME: 17:11 Assessment/Plan VTE Prophylaxis Risk score (from Ns)>0 risk: 2 SCD applied (from Nsg): Yes Pharmacological prophylaxis: LMWH Lines/Catheters IV Catheter Type (from Nrsg): Peripheral IV Urinary Cath still in place: No Assessment/Plan Hospital Course Patient complains of headache, denies fever, will obtain CT of the head Assessment/Plan -Sepsis with E. coli bacteremia secondary to urinary tract infection -Acute UTI -Coronary artery disease status post DC a year ago -Hypertension -Hyperlipidemia -Diabetes mellitus type 2 -Enlarged prostate per CT of the abdomen Further recommendations based on clinical course. Plan of care discussed with Dr. Daniels. Result Diagram: 12/25/1815 12/25/18 0715 Results 24hrs Laboratory Tests Test 12/24/18 17:26 12/24/18 20:40 12/25/18 01:57 12/25/18 07:15 Bedside Glucose 154 190 182 White Blood Count 6.3 # Red Blood Count 3.79 L Hemoglobin 11.7 L Hematocrit 34.0 L Mean Corpuscular 89.7 Volume Mean Corpuscular 30.9 Hemoglobin Mean Corpuscular 34.4 Hemoglobin Concent Red Cell 12.0 Distribution Width Platelet Count 181 Mean Platelet Volume 9.9 Immature 0.800 H Granulocytes % Neutrophils % 69.9 Lymphocytes % 15.0 Monocytes % 6.2 Eosinophils % 7.6 H Basophils % 0.5 Nucleated Red Blood 0.0 Cells % Immature 0.050 H Granulocytes # Neutrophils # 4.4 Lymphocytes # 1.0 Monocytes # 0.4 Eosinophils # 0.5 Basophils # 0.0 Nucleated Red Blood 0.0 Cells # Sodium Level 137 Potassium Level 4.0 Chloride Level 109 Carbon Dioxide Level 23 Anion Gap 5 Blood Urea Nitrogen 7 Creatinine 0.83 Est Glomerular > 60 Filtrat Rate mL/min Glucose Level 182 Hemoglobin A1c 8.7 H Calcium Level 8.9 Test 12/25/18 08:51 12/25/18 12:41 Bedside Glucose 209 218 Exam/Review of Systems Exam Vitals Vital Signs Date Temp Pulse Resp B/P (MAP) Pulse Ox O2 O2 Flow FiO2 Time Delivery Rate 12/25/18 98.7 72 17 125/79 99 Room Air 13:53 (94) Intake and Output 12/24/18 12/24/1819 1515:00 23:00 07:00 IntakeIntake Total 445 ml 1480 ml 1086 ml BalanceBalance 445 ml 1480 ml 1086 ml Exam Constitutional: alert, oriented Respiratory: clear to auscultation Cardiovascular: nl pulses Gastrointestinal: soft, non-tender Extremities: normal pulses Neurological: nl mental status Results Results 24hrs Laboratory Tests Test 12/24/18 17:26 12/24/18 20:40 12/25/18 01:57 12/25/18 07:15 Bedside Glucose 154 190 182 White Blood Count 6.3 # Red Blood Count 3.79 L Hemoglobin 11.7 L Hematocrit 34.0 L Mean Corpuscular 89.7 Volume Mean Corpuscular 30.9 Hemoglobin Mean Corpuscular 34.4 Hemoglobin Concent Red Cell 12.0 Distribution Width Platelet Count 181 Mean Platelet Volume 9.9 Immature 0.800 H Granulocytes % Neutrophils % 69.9 Lymphocytes % 15.0 Monocytes % 6.2 Eosinophils % 7.6 H Basophils % 0.5 Nucleated Red Blood 0.0 Cells % Immature 0.050 H Granulocytes # Neutrophils # 4.4 Lymphocytes # 1.0 Monocytes # 0.4 Eosinophils # 0.5 Basophils # 0.0 Nucleated Red Blood 0.0 Cells # Sodium Level 137 Potassium Level 4.0 Chloride Level 109 Carbon Dioxide Level 23 Anion Gap 5 Blood Urea Nitrogen 7 Creatinine 0.83 Est Glomerular > 60 Filtrat Rate mL/min Glucose Level 182 Hemoglobin A1c 8.7 H Calcium Level 8.9 Test 12/25/18 08:51 12/25/18 12:41 Bedside Glucose 209 218 Medications Medication Current Medications Diagnostic Test (Pha) (Accu-Chek) 1 ea 02 XX Last administered on 12/24/18at 02:00; Admin Dose 1 EA; Start 12/23/18 at 02:00 Insulin Aspart (Novolog Insulin Pen) NOVOLOG *MODERATE* ALGORITHM WITH MEALS BEDTIME SC Last administered on 12/25/18at 12:48; Admin Dose 4 UNIT; Start 12/23/18 at 08:00 Sodium Chloride 1,000 ml @ 100 mls/hr Q10H IV Last administered on 12/25/18at 09:00; Admin Dose 100 MLS/HR; Start 12/23/18 at 02:00 Ceftriaxone Sodium 50 ml @ 100 mls/hr Q24H IVPB Last administered on 12/25/18 00:13; Admin Dose 100 MLS/HR; Start 12/23/18 at 23:30 Acetaminophen (Tylenol Tab) 650 mg Q6H PRN PO MILD PAIN(1-3)OR ELEVATED TEMP Last administered on 12/25/18 06:41; Admin Dose 650 MG; Start 12/23/18 at 02:00 Enoxaparin Sodium (Lovenox) 30 mg DAILY SC Last administered on 12/25/18 08:56; Admin Dose 30 MG; Start 12/23/18 at 09:00 Ondansetron HCl (Zofran Inj) 4 mg Q6H PRN IV NAUSEA AND/OR VOMITING Last administered on 12/23/18 04:47; Admin Dose 4 MG; Start 12/23/18 at 02:00 Miscellaneous Information 1 ea NOTE XX ; Start 12/23/18 at 02:30 Glucose (Glutose) 15 gm Q15M PRN PO DECREASED GLUCOSE; Start 12/23/18 at 02:30 Glucose (Glutose) 22.5 gm Q15M PRN PO DECREASED GLUCOSE; Start 12/23/18 at 02:30 Dextrose (D50w Syringe) 25 ml Q15M PRN IV DECREASED GLUCOSE; Start 12/23/18 at 02:30 Dextrose (D50w Syringe) 50 ml Q15M PRN IV DECREASED GLUCOSE; Start 12/23/18 at 02:30 Glucagon (Glucagen) 1 mg Q15M PRN IM DECREASED GLUCOSE; Start 12/23/18 at 02:30 Glucose (Glutose) 15 gm Q15M PRN BUCCAL DECREASED GLUCOSE; Start 12/23/18 at 02:30 Aspirin (Aspirin) 81 mg DAILY PO Last administered on 12/25/18 08:53; Admin Dose 81 MG; Start 12/24/18 at 09:00 Benazepril HCl (Lotensin) 20 mg DAILY PO Last administered on 12/25/18 08:53; Admin Dose 20 MG; Start 12/24/18 at 09:00 Carvedilol (Coreg) 6.25 mg BID PO Last administered on 12/25/18 08:53; Admin Dose 6.25 MG; Start 12/23/18 at 21:00 Famotidine (Pepcid) 40 mg DAILY PO Last administered on 12/25/18 08:54; Admin Dose 40 MG; Start 12/24/18 at 09:00 Metformin HCl (Glucophage) 1,000 mg BID WITH MEALS PO Last administered on 12/25/18 08:54; Admin Dose 1,000 MG; Start 12/24/18 at 08:00 Hydromorphone HCl (Dilaudid) 1 mg Q4H PRN IV SEVERE PAIN LEVEL 7-10 Last administered on 12/25/18 09:09; Admin Dose 1 MG; Start 12/24/18 at 22:30 Acetaminophen/ Hydrocodone Bitart ([place] (5/325)) 1 tab Q4H PRN PO MODERATE PAIN LEVEL 4-6; Start 12/24/18 at 22:30 SCOOBY DILLON Dec 25, 2018 17:18
[2018-12-25 19:24] VITALS: BP 120/69; PULSE 71; RESP 16
[2018-12-25] MEDS: HYDROCODONE/APAP (5/325) TAB PO PRN (20:42)
[2018-12-26] MEDS: ACCU-CHEK XX SCH ×2 (01:34→21:23)
[2018-12-26] MEDS: HYDROmorphONE 1 MG/ML SYG IV PRN (02:15)
[2018-12-26] MEDS: SOD CHLORIDE 0.9% 1,000 ML IV SCH ×5 (02:16→20:35)
[2018-12-26 07:57] VITALS: BP 135/79; PULSE 67; RESP 19
[2018-12-26] MEDS: FAMOTIDINE 20 MG TAB PO SCH (08:12)
[2018-12-26] MEDS: ASPIRIN 81 MG TAB PO SCH (08:12)
[2018-12-26] MEDS: metFORMIN 500 MG TAB PO SCH ×2 (08:12→17:26)
[2018-12-26] MEDS: BENAZEPRIL 20 MG TAB PO SCH (08:13)
[2018-12-26] MEDS: INSULIN ASPART [NOVOLOG] 3 ML PEN SC SCH ×4 (08:17→21:00)
[2018-12-26] MEDS: ENOXAPARIN 30 MG/0.3 ML SYG SC SCH (08:18)
[2018-12-26] MEDS: ACETAMINOPHEN 325 MG TAB PO PRN (11:36)
--- NOTE | 2018-12-26 11:42 | CONS ---
Assessment/Plan Assessment/Plan Hospital Course (Demo Recall) Alert complaining of headache no fevers overnight he is in no distress. Blood and urine culture grew E. coli both susceptible to symone quinolones. Rocephin antimicrobials: Physical examination: Obese well-developed middle-aged man who is awake in no distress head atraumatic normocephalic neck is supple chest rise symmetrical breath sounds clear. Heart: S1-S2 abdomen obese soft bowel sounds present extremities without cyanosis Assessment: 1. Sepsis present on admission 2. E. coli UTI with bacteremia 3. Coronary artery disease history of [place] 4. Diabetes Plan: Patient is stable, repeat blood cultures negative, we will change antibiotics to oral ciprofloxacin to continue for 10 more days [facility] staff Consultation Date/Type/Reason Admit Date/Time Dec 23, 2018 at 00:19 Initial Consult Date Type of Consult id Date/Time of Note DATE: 12/26/18 TIME: 11:42 Exam/Review of Systems Exam Vitals Vital Signs Date Temp Pulse Resp B/P (MAP) Pulse Ox O2 O2 Flow FiO2 Time Delivery Rate 12/26/18 98.6 67 19 135/79 99 07:57 (97) 12/25/18 Room Air 13:53 Intake and Output 12/25/18 12/25/18 12/26/18 1515:00 23:00 07:00 IntakeIntake Total 680 ml 360 ml 1750 ml BalanceBalance 680 ml 360 ml 1750 ml Results Result Diagram: 12/26/18 0438 12/25/18 0715 Results 24hrs Laboratory Tests Test 12/25/18 12:41 12/25/18 17:17 12/25/18 20:40 12/26/18 04:38 Bedside Glucose 218 146 147 White Blood Count 4.5 #L Red Blood Count 3.61 L Hemoglobin 11.0 L Hematocrit 32.5 L Mean Corpuscular 90.0 Volume Mean Corpuscular 30.5 Hemoglobin Mean Corpuscular 33.8 Hemoglobin Concent Red Cell 11.9 Distribution Width Platelet Count 201 Mean Platelet Volume 9.9 Immature 2.200 H Granulocytes % Neutrophils % 42.5 Lymphocytes % 30.8 Monocytes % 11.7 H Eosinophils % 12.1 H Basophils % 0.7 Nucleated Red Blood 0.0 Cells % Immature 0.100 H Granulocytes # Neutrophils # 1.9 Lymphocytes # 1.4 Monocytes # 0.5 Eosinophils # 0.5 Basophils # 0.0 Nucleated Red Blood 0.0 Cells # Test 12/26/18 08:11 Bedside Glucose 160 Medications Medication Current Medications Diagnostic Test (Pha) (Accu-Chek) 1 ea 02 XX Last administered on 12/24/18at 02:00; Admin Dose 1 EA; Start 12/23/18 at 02:00 Insulin Aspart (Novolog Insulin Pen) NOVOLOG *MODERATE* ALGORITHM WITH MEALS BEDTIME SC Last administered on 12/26/18 08:17; Admin Dose 2 UNIT; Start 12/23/18 at 08:00 Sodium Chloride 1,000 ml @ 100 mls/hr Q10H IV Last administered on 12/26/18 02:16; Admin Dose 100 MLS/HR; Start 12/23/18 at 02:00 Ceftriaxone Sodium 50 ml @ 100 mls/hr Q24H IVPB Last administered on 12/25/18 23:37; Admin Dose 100 MLS/HR; Start 12/23/18 at 23:30 Acetaminophen (Tylenol Tab) 650 mg Q6H PRN PO MILD PAIN(1-3)OR ELEVATED TEMP L ast administered on 12/26/18 11:36; Admin Dose 650 MG; Start 12/23/18 at 02:00 Enoxaparin Sodium (Lovenox) 30 mg DAILY SC Last administered on 12/26/18 08:18; Admin Dose 30 MG; Start 12/23/18 at 09:00 Ondansetron HCl (Zofran Inj) 4 mg Q6H PRN IV NAUSEA AND/OR VOMITING Last administered on 12/25/18 17:18; Admin Dose 4 MG; Start 12/23/18 at 02:00 Miscellaneous Information 1 ea NOTE XX ; Start 12/23/18 at 02:30 Glucose (Glutose) 15 gm Q15M PRN PO DECREASED GLUCOSE; Start 12/23/18 at 02:30 Glucose (Glutose) 22.5 gm Q15M PRN PO DECREASED GLUCOSE; Start 12/23/18 at 02:30 Dextrose (D50w Syringe) 25 ml Q15M PRN IV DECREASED GLUCOSE; Start 12/23/18 at 02:30 Dextrose (D50w Syringe) 50 ml Q15M PRN IV DECREASED GLUCOSE; Start 12/23/18 at 02:30 Glucagon (Glucagen) 1 mg Q15M PRN IM DECREASED GLUCOSE; Start 12/23/18 at 02:30 Glucose (Glutose) 15 gm Q15M PRN BUCCAL DECREASED GLUCOSE; Start 12/23/18 at 02:30 Aspirin (Aspirin) 81 mg DAILY PO Last administered on 12/26/18 08:12; Admin Dose 81 MG; Start 12/24/18 at 09:00 Benazepril HCl (Lotensin) 20 mg DAILY PO Last administered on 12/26/18 08:13; Admin Dose 20 MG; Start 12/24/18 at 09:00 Carvedilol (Coreg) 6.25 mg BID PO Last administered on 12/26/18 08:13; Admin Dose 6.25 MG; Start 12/23/18 at 21:00 Famotidine (Pepcid) 40 mg DAILY PO Last administered on 12/26/18 08:12; Admin Dose 40 MG; Start 12/24/18 at 09:00 Metformin HCl (Glucophage) 1,000 mg BID WITH MEALS PO Last administered on 12/26/18 08:12; Admin Dose 1,000 MG; Start 12/24/18 at 08:00 Hydromorphone HCl (Dilaudid) 1 mg Q4H PRN IV SEVERE PAIN LEVEL 7-10 Last ad ministered on 12/26/18at 02:15; Admin Dose 1 MG; Start 12/24/18 at 22:30 Acetaminophen/ Hydrocodone Bitart ([place] (5/325)) 1 tab Q4H PRN PO MODERATE PAIN LEVEL 4-6 Last administered on 12/25/18at 20:42; Admin Dose 1 TAB; Start 12/24/18 at 22:30 MONIKA LEOS NP Dec 26, 2018 11:42
[2018-12-26] MEDS: HYDROCODONE/APAP (5/325) TAB PO PRN (13:49)
[2018-12-26 14:08] VITALS: BP 119/70; PULSE 73; RESP 17
[2018-12-26] MEDS: CIPROFLOXACIN 500 MG TAB PO SCH (17:28)
--- NOTE | 2018-12-26 18:54 | PN ---
Date/Time of Note Date/Time of Note DATE: 12/26/18 TIME: 18:50 Assessment/Plan VTE Prophylaxis Risk score (from Ns)>0 risk: 2 SCD applied (from Nsg): Yes Pharmacological prophylaxis: LMWH Lines/Catheters IV Catheter Type (from Nrsg): Peripheral IV Urinary Cath still in place: No Assessment/Plan Hospital Course CT of the head is negative, patient stated that his headaches is better controlled blood sugar is adequately controlled continue current regimen monitor Accu-Chek before meals and at bedtime continue antibiotics, if patient continues to improve anticipate discharge home tomorrow Assessment/Plan -Sepsis with E. coli bacteremia secondary to urinary tract infection -Acute UTI -Coronary artery disease status post CA a year ago -Hypertension -Hyperlipidemia -Diabetes mellitus type 2 with hemoglobin A1c of 8.7. -Enlarged prostate per CT of the abdomen Further recommendations based on clinical course. Plan of care discussed with Dr. Daniels. Result Diagram: 12/26/18 0438 12/25/18 0715 Results 24hrs Laboratory Tests Test 12/25/18 20:40 12/26/18 04:38 12/26/18 08:11 12/26/18 12:37 Bedside Glucose 147 160 153 White Blood Count 4.5 #L Red Blood Count 3.61 L Hemoglobin 11.0 L Hematocrit 32.5 L Mean Corpuscular 90.0 Volume Mean Corpuscular 30.5 Hemoglobin Mean Corpuscular 33.8 Hemoglobin Concent Red Cell 11.9 Distribution Width Platelet Count 201 Mean Platelet Volume 9.9 Immature 2.200 H Granulocytes % Neutrophils % 42.5 Lymphocytes % 30.8 Monocytes % 11.7 H Eosinophils % 12.1 H Basophils % 0.7 Nucleated Red Blood 0.0 Cells % Immature 0.100 H Granulocytes # Neutrophils # 1.9 Lymphocytes # 1.4 Monocytes # 0.5 Eosinophils # 0.5 Basophils # 0.0 Nucleated Red Blood 0.0 Cells # Test 12/26/18 17:28 Bedside Glucose 194 Exam/Review of Systems Exam Vitals Vital Signs Date Temp Pulse Resp B/P (MAP) Pulse Ox O2 O2 Flow FiO2 Time Delivery Rate 12/26/18 98.1 73 17 119/70 96 14:08 (86) 12/25/18 Room Air 13:53 Intake and Output 12/25/18 12/25/18 12/26/18 1414:59 22:59 06:59 IntakeIntake Total 680 ml 360 ml 1750 ml BalanceBalance 680 ml 360 ml 1750 ml Exam Constitutional: alert, oriented Respiratory: clear to auscultation Cardiovascular: nl pulses Gastrointestinal: soft, non-tender Extremities: normal pulses Neurological: nl mental status Results Results 24hrs Laboratory Tests Test 12/25/18 20:40 12/26/18 04:38 12/26/18 08:11 12/26/18 12:37 Bedside Glucose 147 160 153 White Blood Count 4.5 #L Red Blood Count 3.61 L Hemoglobin 11.0 L Hematocrit 32.5 L Mean Corpuscular 90.0 Volume Mean Corpuscular 30.5 Hemoglobin Mean Corpuscular 33.8 Hemoglobin Concent Red Cell 11.9 Distribution Width Platelet Count 201 Mean Platelet Volume 9.9 Immature 2.200 H Granulocytes % Neutrophils % 42.5 Lymphocytes % 30.8 Monocytes % 11.7 H Eosinophils % 12.1 H Basophils % 0.7 Nucleated Red Blood 0.0 Cells % Immature 0.100 H Granulocytes # Neutrophils # 1.9 Lymphocytes # 1.4 Monocytes # 0.5 Eosinophils # 0.5 Basophils # 0.0 Nucleated Red Blood 0.0 Cells # Test 12/26/18 17:28 Bedside Glucose 194 Medications Medication Current Medications Diagnostic Test (Pha) (Accu-Chek) 1 ea 02 XX Last administered on 12/24/18at 02:00; Admin Dose 1 EA; Start 12/23/18 at 02:00 Insulin Aspart (Novolog Insulin Pen) NOVOLOG *MODERATE* ALGORITHM WITH MEALS BEDTIME SC Last administered on 12/26/18 17:31; Admin Dose 4 UNIT; Start 12/23/18 at 08:00 Sodium Chloride 1,000 ml @ 100 mls/hr Q10H IV Last administered on 12/26/18 13:47; Admin Dose 100 MLS/HR; Start 12/23/18 at 02:00 Acetaminophen (Tylenol Tab) 650 mg Q6H PRN PO MILD PAIN(1-3)OR ELEVATED TEMP Last administered on 12/26/18at 11:36; Admin Dose 650 MG; Start 12/23/18 at 02:00 Enoxaparin Sodium (Lovenox) 30 mg DAILY SC Last administered on 12/26/18at 08:18; Admin Dose 30 MG; Start 12/23/18 at 09:00 Ondansetron HCl (Zofran Inj) 4 mg Q6H PRN IV NAUSEA AND/OR VOMITING Last administered on 12/25/18 17:18; Admin Dose 4 MG; Start 12/23/18 at 02:00 Miscellaneous Information 1 ea NOTE XX ; Start 12/23/18 at 02:30 Glucose (Glutose) 15 gm Q15M PRN PO DECREASED GLUCOSE; Start 12/23/18 at 02:30 Glucose (Glutose) 22.5 gm Q15M PRN PO DECREASED GLUCOSE; Start 12/23/18 at 02:30 Dextrose (D50w Syringe) 25 ml Q15M PRN IV DECREASED GLUCOSE; Start 12/23/18 at 02:30 Dextrose (D50w Syringe) 50 ml Q15M PRN IV DECREASED GLUCOSE; Start 12/23/18 at 02:30 Glucagon (Glucagen) 1 mg Q15M PRN IM DECREASED GLUCOSE; Start 12/23/18 at 02:30 Glucose (Glutose) 15 gm Q15M PRN BUCCAL DECREASED GLUCOSE; Start 12/23/18 at 02:30 Aspirin (Aspirin) 81 mg DAILY PO Last administered on 12/26/18 08:12; Admin Dose 81 MG; Start 12/24/18 at 09:00 Benazepril HCl (Lotensin) 20 mg DAILY PO Last administered on 12/26/18 08:13; Admin Dose 20 MG; Start 12/24/18 at 09:00 Carvedilol (Coreg) 6.25 mg BID PO Last administered on 12/26/18 08:13; Admin D ose 6.25 MG; Start 12/23/18 at 21:00 Famotidine (Pepcid) 40 mg DAILY PO Last administered on 12/26/18 08:12; Admin Dose 40 MG; Start 12/24/18 at 09:00 Metformin HCl (Glucophage) 1,000 mg BID WITH MEALS PO Last administered on 12/26/18 17:26; Admin Dose 1,000 MG; Start 12/24/18 at 08:00 Hydromorphone HCl (Dilaudid) 1 mg Q4H PRN IV SEVERE PAIN LEVEL 7-10 Last administered on 12/26/18at 02:15; Admin Dose 1 MG; Start 2/11/19 at 22:30 Acetaminophen/ Hydrocodone Bitart ([place] (5/325)) 1 tab Q4H PRN PO MODERATE PAIN LEVEL 4-6 Last administered on 12/26/18at 13:49; Admin Dose 1 TAB; Start 12/24/18 at 22:30 Ciprofloxacin (Cipro) 500 mg BID@06,18 PO Last administered on 12/26/18at 17:28; Admin Dose 500 MG; Start 12/26/18 at 18:00 SCOOBY DILLON Dec 26, 2018 18:54
[2018-12-26 19:49] VITALS: BP 137/85; PULSE 61; RESP 18
[2018-12-26] MEDS ORDERED: INSULIN GLARGINE [LANTus] (100 UNITS/ML) SYG SC SCH (20:30)
[2018-12-27] MEDS: SOD CHLORIDE 0.9% 1,000 ML IV SCH (00:28)
[2018-12-27 02:25] VITALS: BP 126/74; PULSE 63; RESP 18
[2018-12-27] MEDS: CIPROFLOXACIN 500 MG TAB PO SCH (06:00)
[2018-12-27 07:34] VITALS: BP 141/81; PULSE 58; RESP 18
[2018-12-27] MEDS: INSULIN ASPART [NOVOLOG] 3 ML PEN SC SCH ×2 (08:00→12:00)
[2018-12-27] MEDS: ASPIRIN 81 MG TAB PO SCH (08:09)
[2018-12-27] MEDS: BENAZEPRIL 20 MG TAB PO SCH (08:09)
[2018-12-27] MEDS: FAMOTIDINE 20 MG TAB PO SCH (08:10)
[2018-12-27] MEDS: metFORMIN 500 MG TAB PO SCH (08:10)
[2018-12-27] MEDS: ENOXAPARIN 30 MG/0.3 ML SYG SC SCH (08:12)
[2018-12-27] MEDS ORDERED: LINAGLIPTIN 5 MG TABLET PO SCH (09:00)
[2018-12-27] MEDS ORDERED: SITA100T11 PO (12:39)
[2018-12-27] MEDS ORDERED: CIPR500T4 PO (12:39)
[2018-12-27] MEDS ORDERED: Insulin Glargine SC (12:39)
--- NOTE | 2018-12-27 14:29 | CONS ---
Assessment/Plan Assessment/Plan Hospital Course (Demo Recall) 1000 No acute events, awake, looks comfortable, no fevers Physical examination: Obese well-developed middle-aged man who is awake in no distress head atraumatic normocephalic neck is supple chest rise symmetrical breath sounds clear. Heart: S1-S2 abdomen obese soft bowel sounds present extremities without cyanosis Assessment: 1. Sepsis present on admission 2. E. coli UTI with bacteremia 3. Coronary artery disease history of [place] 4. Diabetes Plan: Stable, repeat blood cultures negative, ok dc on oral ciprofloxacin for 10 more days [facility] staff Consultation Date/Type/Reason Admit Date/Time Dec 23, 2018 at 00:19 Initial Consult Date Type of Consult id Date/Time of Note DATE: 12/27/18 TIME: 14:28 Exam/Review of Systems Exam Vitals Vital Signs Date Temp Pulse Resp B/P (MAP) Pulse Ox O2 O2 Flow FiO2 Time Delivery Rate 12/27/18 98.4 58 18 141/81 98 07:34 (101) 12/25/18 Room Air 13:53 Intake and Output 12/26/18 12/26/18 12/27/18 1515:00 23:00 07:00 IntakeIntake Total 1660 ml 780 ml 925 ml BalanceBalance 1660 ml 780 ml 925 ml Results Result Diagram: 12/27/18 0427 12/27/18 0427 Results 24hrs Laboratory Tests Test 12/26/18 17:28 12/26/18 21:16 12/27/18 04:27 12/27/18 08:08 Bedside Glucose 194 121 139 White Blood Count 5.7 # Red Blood Count 4.22 L Hemoglobin 12.6 L Hematocrit 37.5 L Mean Corpuscular 88.9 Volume Mean Corpuscular 29.9 Hemoglobin Mean Corpuscular 33.6 Hemoglobin Concent Red Cell 12.0 Distribution Width Platelet Count 247 # Mean Platelet Volume 9.5 Immature 3.700 H Granulocytes % Neutrophils % 42.9 Lymphocytes % 30.3 Monocytes % 11.8 H Eosinophils % 10.2 H Basophils % 1.1 Nucleated Red Blood 0.0 Cells % Immature 0.210 H Granulocytes # Neutrophils # 2.4 Lymphocytes # 1.7 Monocytes # 0.7 Eosinophils # 0.6 H Basophils # 0.1 Nucleated Red Blood 0.0 Cells # Sodium Level 142 Potassium Level 3.5 Chloride Level 104 Carbon Dioxide Level 26 Anion Gap 12 # Blood Urea Nitrogen 9 Creatinine 0.89 Est Glomerular > 60 Filtrat Rate mL/min Glucose Level 134 # Calcium Level 9.4 Test 12/27/18 12:57 Bedside Glucose 128 MONIKA LEOS NP Dec 27, 2018 14:29
--- NOTE | 2018-12-30 22:08 | DS ---
Date/Time of Note Date/Time of Note DATE: 12/30/18 TIME: 22:06 Discharge Summary Admission/Discharge Info Admit Date/Time Dec 23, 2018 at 00:19 Discharge Date/Time Dec 27, 2018 at 13:50 Patient Condition: Stable Hx of Present Illness Patient with hypertension, hyperlipidemia, and diabetes mellitus on oral medications comes in with headache and fever. Patient is found to have urinary tract infection and so is admitted for IV antibiotics. Hospital Course -Sepsis with E. coli bacteremia secondary to urinary tract infection -Acute UTI -Headache, resolved, CT of the brain is negative for any acute pathology -Coronary artery disease status post ND a year ago -Hypertension -Hyperlipidemia -Diabetes mellitus type 2 with hemoglobin A1c of 8.7. -Enlarged prostate per CT of the abdomen Plan of care discussed with Dr. Daniels. Home Meds Active Scripts [Insulin Glargine] 100 UNITS/ML SOLN No Conflict Check, 10 UNITS SC DAILY@1999 for 30 Days Prov:SCOOBY DILLON 12/27/18 Sitagliptin* (Januvia*) 100 Mg Tablet, 100 MG PO DAILY for 30 Days, #30 TAB Prov:SCOOBY DILLON 12/27/18 Ciprofloxacin Hcl* (Ciprofloxacin Hcl*) 500 Mg Tablet, 500 MG PO BID@ for 9 Days, TAB Prov:SCOOBY DILLON 12/27/18 Reported Medications Benazepril Hcl* (Benazepril Hcl*) 20 Mg Tablet, 20 MG PO DAILY, #30 TAB 07/05/18 Metformin* (Glucophage*) 1,000 Mg Tablet, 1000 MG PO BID, #60 TAB 07/05/18 Aspirin* (Aspirin* Chew) 81 Mg Tab.chew, 81 MG PO DAILY, TAB.CHEW 07/05/18 Simvastatin* (Simvastatin*) 5 Mg Tablet, 5 MG PO QHS, #30 TAB 07/05/18 Famotidine* (Famotidine*) 40 Mg Tablet, 40 MG PO DAILY, #30 TAB 07/05/18 Carvedilol* (Coreg*) 6.25 Mg Tablet, 6.25 MG PO BID, #60 TAB 07/05/18 Follow-up Plan Follow-up with PMD in 2-3 weeks. Primary Care Provider Not On Staff Doctor Time spent on discharge: > 30 minutes SCOOBY DILLON Dec 30, 2018 22:08
== END 2018-12-27 13:50 | disposition home or self-care (01) | DRG 872 ==
LOC: E/R 22:44 → 2NE 12-23 00:19 → CANRESERV 12-23 00:34
PROVIDERS: ADMIT Internal Medicine; ATTEND Internal Medicine
DX: A41.9 Sepsis, unspecified organism (principal); N39.0 Urinary tract infection, site not specified; B96.20 Unspecified Escherichia coli [E. coli] as the cause of diseases classified elsewhere; E11.9 Type 2 diabetes mellitus without complications; E78.5 Hyperlipidemia, unspecified; I10 Essential (primary) hypertension; I25.10 Atherosclerotic heart disease of native coronary artery without angina pectoris; N40.0 Benign prostatic hyperplasia without lower urinary tract symptoms; R07.9 Chest pain, unspecified; R51 Headache; I25.2 Old myocardial infarction; Z79.84 Long term (current) use of oral hypoglycemic drugs; Z87.891 Personal history of nicotine dependence
CPT/HCPCS: 36415; 70450; 71045; 74176; 80048; 80053; 81001; 82550; 82553; 82962; 83036; 83605; 83690; 84484; 85025; 85610; 85730; 86140; 87040; 87086; 93005; 96365; 96375; J0696; J1170; J1650; J1815; J2270; J2405; J7030

== ENCOUNTER 2019-01-17 15:34 | Emergency (ER) | payer BC ==
[~2019-01-17] VITALS: Ht 167.6 cm; Wt 92.6 kg
[~2019-01-17 15:34] MED LIST changes: +CIPR500T4 PO; +Insulin Glargine SC; +SITA100T11 PO
[2019-01-17 15:42] VITALS: Ht 167.6 cm; Wt 92.6 kg
--- NOTE | 2019-01-17 23:48 | ERD ---
ER Documentation Chief Complaint Chief Complaint headache x 2 days HPI The patient is a 58-year-old male, presenting to the ER because of occipital frontal headache, low back pain, dysuria, fever of 103 that began this morning. He had similar symptom last Monday when he was admitted for acute sepsis due to acute cystitis. He denies cough, congestion, neck pain, chest pain, dyspnea, abdominal pain, complains of nausea but no vomiting, denies dysuria, diarrhea, constipation. He does not smoke nor drink Past medical history: Hypertension, dyslipidemia, diabetes mellitus, CAD Past surgical history: Cholecystectomy, TURP about a year and a half ago ROS All systems reviewed and are negative except as per history of present illness. Medications Home Meds Active Scripts Ibuprofen* (Motrin*) 600 Mg Tab, 600 MG PO Q6H PRN for PAIN AND OR ELEVATED TEMP, #30 TAB Prov:HERNAN RODRÍGUEZ MD 01/18/19 Cephalexin* (Keflex*) 500 Mg Capsule, 500 MG PO QID for 10 Days, CAP Prov:HERNAN RODRÍGUEZ MD 01/18/19 [Insulin Glargine] 100 UNITS/ML SOLN No Conflict Check, 10 UNITS SC DAILY@1999 for 30 Days Prov:SCOOBY DILLON 12/27/18 Sitagliptin* (Januvia*) 100 Mg Tablet, 100 MG PO DAILY for 30 Days, #30 TAB Prov:SCOOBY DILLON 12/27/18 Ciprofloxacin Hcl* (Ciprofloxacin Hcl*) 500 Mg Tablet, 500 MG PO BID@06,18 for 9 Days, TAB Prov:SCOOBY DILLON 12/27/18 Reported Medications Benazepril Hcl* (Benazepril Hcl*) 20 Mg Tablet, 20 MG PO DAILY, #30 TAB 07/05/18 Metformin* (Glucophage*) 1,000 Mg Tablet, 1000 MG PO BID, #60 TAB 07/05/18 Aspirin* (Aspirin* Chew) 81 Mg Tab.chew, 81 MG PO DAILY, TAB.CHEW 07/05/18 Simvastatin* (Simvastatin*) 5 Mg Tablet, 5 MG PO QHS, #30 TAB 07/05/18 Famotidine* (Famotidine*) 40 Mg Tablet, 40 MG PO DAILY, #30 TAB 07/05/18 Carvedilol* (Coreg*) 6.25 Mg Tablet, 6.25 MG PO BID, #60 TAB 07/05/18 Allergies Allergies: Coded Allergies: No Known Allergy (Unverified , 07/05/18) PMhx/Soc History of Surgery: Yes (Lap Stefany, Prostate Sx 2016) Anesthesia Reaction: No Hx Neurological Disorder: No Hx Respiratory Disorders: No Hx Cardiac Disorders: Yes ([place] 2017, HTN, High Cholesterol) Hx Psychiatric Problems: No Hx Alcohol Use: Yes (Quit 10 years ago) Hx Substance Use: No Hx Tobacco Use: Yes (Quit 25 years ago) Smoking Status: Former smoker Physical Exam Vitals Vital Signs Date Temp Pulse Resp B/P (MAP) Pulse Ox O2 O2 Flow FiO2 Time Delivery Rate 01/18/19 98.8 84 19 111/69 98 Room Air 00:58 (83) 01/17/19 100.3 100 20 114/66 99 15:42 (82) Physical Exam Const: No acute distress. Head: Atraumatic. Eyes: Normal Conjunctiva. ENT: Normal External Ears, Nose and Mouth. Neck: Full range of motion. No meningismus. Resp: Clear to auscultation bilaterally. Cardio: Regular rate and rhythm. Abd: Soft, non distended, normal bowel sounds, non tender. Skin: No petechiae or rashes. Back: No midline or flank tenderness. Ext: No cyanosis, or edema. Neur: Awake and alert. No focal deficit Psych: Normal Mood and Affect. Result Diagram: 01/17/19 0001 01/18/19 0001 Results 24 hrs Laboratory Tests Test 01/17/19 00:01 01/18/19 00:01 01/18/19 00:12 01/18/19 00:27 White Blood Count 15.5 10^3/ul Red Blood Count 4.06 10^6/ul Hemoglobin 12.4 g/dl Hematocrit 36.9 % Mean Corpuscular 90.9 fl Volume Mean Corpuscular 30.5 pg Hemoglobin Mean Corpuscular 33.6 g/dl Hemoglobin Concen t Red Cell 12.7 % Distribution Width Platelet Count 290 10^3/UL Mean Platelet 9.4 fl Volume Immature 0.500 % Granulocytes % Neutrophils % 65.3 % Lymphocytes % 20.6 % Monocytes % 8.6 % Eosinophils % 4.6 % Basophils % 0.4 % Nucleated Red 0.0 /100WBC Blood Cells % Immature 0.080 10^3/ul Granulocytes # Neutrophils # 10.1 10^3/ul Lymphocytes # 3.2 10^3/ul Monocytes # 1.3 10^3/ul Eosinophils # 0.7 10^3/ul Basophils # 0.1 10^3/ul Nucleated Red 0.0 10^3/ul Blood Cells # Prothrombin Time 13.2 Sec Prothrombin Time 1.0 Ratio INR International 0.99 Normalized Ratio Activated 33.5 Sec Partial Thrombopl ast Time Sodium Level 140 mmol/L Potassium Level 4.2 mmol/L Chloride Level 101 mmol/L Carbon Dioxide 25 mmol/L Level Anion Gap 14 Blood Urea 16 mg/dl Nitrogen Creatinine 1.20 mg/dl Est Glomerular > 60 mL/min Filtrat Rate mL/min Glucose Level 133 mg/dl Lactic Acid Level 1.8 mmol/L Calcium Level 9.8 mg/dl Total Bilirubin 0.9 mg/dl Direct Bilirubin 0.00 mg/dl Indirect 0.9 mg/dl Bilirubin Aspartate Amino 44 IU/L Transf (AST/SGOT) Alanine 41 IU/L Aminotransferase (ALT/SGPT) Alkaline 100 IU/L Phosphatase Troponin I < 0.012 ng/ml Total Protein 7.9 g/dl Albumin 4.6 g/dl Globulin 3.30 g/dl Albumin/Globulin 1.39 Ratio Urine Color YELLOW Urine Clarity CLOUDY Urine pH 5.0 Urine Specific 1.027 Hunter Urine Ketones NEGATIVE mg/dL Urine Nitrite NEGATIVE mg/dL Urine Bilirubin NEGATIVE mg/dL Urine NEGATIVE mg/dL Urobilinogen Urine Leukocyte 3+ Ayanna/ul Esterase Urine Microscopic 17 /HPF RBC Urine Microscopic > 182 /HPF WBC Urine Bacteria FEW /HPF Urine Mucus FEW /HPF Urine Hemoglobin 2+ mg/dL Urine Glucose NEGATIVE mg/dL Urine Total 1+ mg/dl Protein Bedside Urine pH 5.5 (LAB) Bedside Urine 1+ Protein (LAB) Bedside Urine Negative Glucose (UA) Bedside Urine Negative Ketones (LAB) Bedside Urine 2+ Blood Bedside Urine Negative Nitrite (LAB) Bedside Urine 1+ Leukocyte Esteras e (L Test 01/18/19 02:09 POC Venous 1.0 mmol/L Lactate Current Medications Medications Dose Sig/Margarito Start Time Status Last (Trade) Ordered Route PRN Stop Time Admin Dose Reason Admin Sodium 2,780 ml BOLUS OVER 2 01/17/19 DC 01/18/19 Chloride HOURS STAT 23:59 01/18/19 00:56 (NS) IV* 00:02 Sodium 1,910 ml BOLUS OVER 2 01/17/19 DC 01/18/19 Chloride HOURS STAT 23:59 01/18/19 00:19 (NS) IV* 00:02 Ketorolac 30 mg ONCE STAT 01/18/19 DC 01/18/19 Tromethamine IV 00:01 01/18/19 00:58 (Toradol) 00:02 Ceftriaxone 50 ml @ ONCE ONCE 01/18/19 DC 01/18/19 Sodium 100 mls/hr IVPB 01:30 01/18/19 01:18 01:59 Procedures/[place] [id number] Radiology Main Line: [phone] DIAGNOSTIC IMAGING REPORT Patient: CONNIE KLEIN : 1960 Age: 58 Sex: M MR #: [id number] DOS: 01/17/19 2359 Ordering MD: HERNAN RODRÍGUEZ MD Location: E/R Room/Bed: PROCEDURE: Chest. CLINICAL INDICATION: Shortness of breath. TECHNIQUE: Single frontal view of the chest was obtained. COMPARISON: 12/22/2018. FINDINGS: The cardiac silhouette is within normal limits. The aortic arch is unremarkable. There is no focal consolidation, vascular congestion or pleural effusion. There is no pneumothorax. IMPRESSION: No evidence for active cardiopulmonary disease. .Damon Fajardo MD, MD Date Time Electronically viewed and signed by .Damon Fajardo MD, MD on 01/18/2019 01:34 .T/ CC: HERNAN RODRÍGUEZ MD [id number] EKG: Read by emergency physician Rate/Rhythm: Normal Sinus Rhythm 86 beats/min QRS, ST, T-waves: No ST elevation, no T inversion Impression: Normal EKG MEDICAL MAKING DECISION: The patient is a 58-year-old male, presenting with acute cystitis, acute dehydration. He was treated with ideal body weight IV fluid for acute clinical dehydration, Toradol 30 mg IV for general discomfort and Rocephin 1 g IV for acute cystitis with good response, lactate levels coming down, he is stable for outpatient follow-up The differential diagnoses considered include but are not limited to cholelithiasis, cholecystitis, choledocholithiasis, cholangitis, pancreatitis, hepatitis, gastritis, peptic ulcer disease, gastric ulcer, appendicitis, cy stitis, diverticulitis, partial small bowel obstruction. Departure Diagnosis: Primary Impression: UTI (urinary tract infection) Additional Impressions: Dehydration Anemia Condition: Good Comments He was discharged with Keflex and Motrin I discussed the findings with the patient. I advised the patient to follow-up with the primary physician/urologist in about 2-3 days, sooner if needed and return if any concern. Disclaimer: Inadvertent spelling and grammatical errors are likely due to EHR/dictation software use and do not reflect on the overall quality of patient care. Also, please note that the electronic time recorded on this note does not necessarily reflect the actual time of the patient encounter. HERNAN RODRÍGUEZ MD Jan 17, 2019 23:48
[2019-01-17] MEDS ORDERED: SODIUM CHLORIDE 0.9% 1L BAG IV* STA ×2 (23:59)
[2019-01-18] MEDS ORDERED: KETOROLAC 30 MG INJ IV STA (00:01)
[2019-01-18] MEDS ORDERED: CEFTRIAXONE 1 GM/50 ML (PMX) 50 ML IVPB ONE (01:30)
[2019-01-18] MEDS ORDERED: CEPH-443 PO (02:57)
[2019-01-18] MEDS ORDERED: IBUP-1542 PO (02:57)
[2019-01-18 03:20] VITALS: BP 103/64; PULSE 84; RESP 21
== END 2019-01-18 03:21 | disposition home or self-care (01) ==
LOC: FTE 15:34 → E/R 01-18 03:21
DX: N39.0 Urinary tract infection, site not specified (principal); E86.0 Dehydration; D64.9 Anemia, unspecified; R06.02 Shortness of breath; I10 Essential (primary) hypertension; I25.2 Old myocardial infarction; E11.9 Type 2 diabetes mellitus without complications; Z87.891 Personal history of nicotine dependence; Z79.4 Long term (current) use of insulin; Z79.82 Long term (current) use of aspirin
CPT/HCPCS: 36415; 71045; 80053; 81001; 81003; 83605; 84484; 85025; 85610; 85730; 86305; 87040; 87045; 87086; 93005; 96374; 96375; 99285; J0696; J1885; J7030

== ENCOUNTER 2019-07-26 21:16 | Emergency (ER) | payer BC, OTHER ==
[~2019-07-26] VITALS: Ht 167.6 cm; Wt 97.0 kg
[~2019-07-26 21:16] MED LIST changes: +ACET500C5 PO; +CEPH-443 PO; -CIPR500T4 PO; +IBUP-1542 PO
[2019-07-26 22:07] VITALS: Ht 167.6 cm; Wt 97.0 kg
[2019-07-26] MEDS ORDERED: SOD CHLORIDE 0.9% 1,000 ML IV STA (22:39)
[2019-07-26] MEDS ORDERED: ONDANSETRON 4 MG INJ IV STA (22:40)
[2019-07-26] MEDS ORDERED: ACETAMINOPHEN 325 MG TAB PO ONE (23:00)
[2019-07-27] MEDS ORDERED: CEFTRIAXONE 1 GM/50 ML (PMX) 50 ML IVPB ONE (00:30)
[2019-07-27 01:10] VITALS: BP 112/63; PULSE 75; RESP 20
== END 2019-07-27 01:11 | disposition home or self-care (01) ==
LOC: FTE 21:16
DX: N39.0 Urinary tract infection, site not specified (principal); I10 Essential (primary) hypertension; E11.9 Type 2 diabetes mellitus without complications; I25.10 Atherosclerotic heart disease of native coronary artery without angina pectoris; I25.2 Old myocardial infarction; R79.89 Other specified abnormal findings of blood chemistry; R94.5 Abnormal results of liver function studies; Z79.4 Long term (current) use of insulin; Z79.82 Long term (current) use of aspirin; Z87.891 Personal history of nicotine dependence
CPT/HCPCS: 36415; 80053; 81001; 83690; 84484; 85025; 87086; 96361; 96365; 96375; J0696; J2405; J7030; Z7502; Z7610; 93005